=== PATIENT | female | born 1970 | race Caucasian/White ===

== ENCOUNTER 2017-10-29 14:44 | Emergency (ER) | payer BC, SELFPAY ==
--- NOTE | 2017-10-29 15:30 | RAD ---
PA AND LATERAL CHEST: Date: 10/29/17 INDICATION: History of bronchitis, cough. COMPARISON: None. FINDINGS: No focal consolidation is evident. There is mild cardiomegaly. Pulmonary vasculature is normal. No pl eural effusion is evident. No acute osseous abnormality is evident. IMPRESSION: 1. No acute cardiopulmonary abnormality. 2. Mild cardiomegaly. POS: [facility]
[2017-10-29] MEDS ORDERED: Hydrocodone-Acetamin 15 ML UDCUP ONE (16:07)
[2017-10-29] MEDS ORDERED: Dexamethasone 4 MG TAB ONE (16:08)
[2017-10-29] MEDS ORDERED: Albuterol Sulfate 1.25 MG/3 ML NEB ONE (16:08)
[2017-10-29] MEDS ORDERED: Albuterol Sulfate 2.5 mg/3 ml Neb ONE (16:10)
[2017-10-29 16:40] LABS: #Basophils 0.1 thou/uL (0.0-0.2); #Eosinphils 0.2 thou/uL (0.0-0.7); #Lymphocytes 1.8 thou/uL (1.20-3.40); #Monocytes 0.8 thou/uL (0.11-0.59); #Neutrophils 6.3 thou/uL (1.40-6.50); %Basophils 0.6 % (0.0-1.0); %Eosinophils 2.5 % (0.0-10.0); %Lymphocytes 19.7 % (21.0-51.0); %Monocytes 8.5 % (0.0-10.0); %Neutrophils 68.8 % (42.0-75.0); Hemoglobin 14.8 g/dL (12.0-16.0); Mean Corpuscular HGB CONC 33.2 g/dL (32.0-36.0); Mean Corpuscular Volume 87.4 fl (81.0-99.0); Mean Platelet Volume 8.2 fL (7.4-10.4); Platelet Count 240 thou/uL (130-400); RBC Distribution Width 13.1 % (11.5-14.5); Red Blood Cell (RBC) Count 5.11 mill/uL (4.20-5.40); White Blood Cell (WBC) Count 9.1 thou/uL (4.8-10.8)
[2017-10-29 17:03] LABS: ALT (SGPT) 11 U/L (8-55); AST (SGOT) 14 U/L (5-34); Albumin 3.6 g/dL (3.5-5.0); Alkaline Phosphatase 67 U/L (40-150); Anion Gap 11 mmol/L (10-20); BUN (Urea Nitrogen) 12 mg/dL (7.0-18.7); Bilirubin, Total Less than 0.2 mg/dL (0.2-1.2); Calc. Creatinine Clearance 0 mL/min (70-130); Calcium 8.5 mg/dL (7.8-10.44); Carbon Dioxide 27 mmol/L (22-29); Chloride 102 mmol/L (98-107); Estimated GFR-MDRD 88; Globulin 3.4 g/dL (2.4-3.5); Glucose 134 mg/dL (70-105); Potassium 3.8 mmol/L (3.5-5.1); Sodium 136 mmol/L (136-145)
[2017-10-29] MEDS ORDERED: Ibuprofen 800 MG TAB ONE (17:24)
== END 2017-10-29 17:55 | disposition home or self-care (01) ==
LOC: ERS 14:44
DX: J11.1 Influenza due to unidentified influenza virus with other respiratory manifestations (principal); I10 Essential (primary) hypertension; F32.9 Major depressive disorder, single episode, unspecified; Z79.899 Other long term (current) drug therapy
CPT/HCPCS: 36415; 71046; 80053; 85025; J7611; J8540